=== PATIENT | female | born 1955 | race Caucasian/White ===

== ENCOUNTER 2025-02-21 07:58 | Day surgery (SDC) | payer MEDICARE, OTHER ==
[2025-02-21] MEDS ORDERED: Midazolam 1 MG/ML 2 ML SDV IV ONE (07:59)
[2025-02-21] MEDS ORDERED: fentaNYL 100 MCG/2 ML SDV IV ONE (07:59)
[2025-02-21] MEDS ORDERED: Sodium Chloride 0.9% 10 ML Syringe FLUSH PRN (08:00)
[2025-02-21] MEDS: Lactated Ringers 1,000 ML IV PRN (09:15)
[2025-02-21] MEDS: acetaZOLAMIDE 500 MG Cap.ER PO ONE (10:37)
== END 2025-02-21 10:53 ==
LOC: FB.SDS 07:58
PROVIDERS: ATTEND Ophthalmology
DX: E11.36 Type 2 diabetes mellitus with diabetic cataract (principal); H26.8 Other specified cataract; I12.9 Hypertensive chronic kidney disease with stage 1 through stage 4 chronic kidney disease, or unspecified chronic kidney disease; E11.22 Type 2 diabetes mellitus with diabetic chronic kidney disease; N18.30 Chronic kidney disease, stage 3 unspecified; Z79.899 Other long term (current) drug therapy; Z79.4 Long term (current) use of insulin; Z88.8 Allergy status to other drugs, medicaments and biological substances; Z91.09 Other allergy status, other than to drugs and biological substances; Z87.891 Personal history of nicotine dependence
CPT/HCPCS: 00142; 66984; 82947; A9270; J2250; J3010; J7120; V2632

== ENCOUNTER 2025-03-07 07:27 | Day surgery (SDC) | payer MEDICARE, OTHER ==
[2025-03-07] MEDS ORDERED: Midazolam 1 MG/ML 2 ML SDV IV ONE (07:28)
[2025-03-07] MEDS ORDERED: fentaNYL 100 MCG/2 ML SDV IV ONE (07:28)
[2025-03-07] MEDS ORDERED: Sodium Chloride 0.9% 10 ML Syringe FLUSH PRN (07:30)
[2025-03-07] MEDS: acetaZOLAMIDE 500 MG Cap.ER PO ONE (09:54)
[2025-03-07] MEDS: Lactated Ringers 1,000 ML IV PRN (09:54)
== END 2025-03-07 10:16 ==
LOC: FB.SDS 07:27
PROVIDERS: ATTEND Ophthalmology
DX: E11.36 Type 2 diabetes mellitus with diabetic cataract (principal); H26.9 Unspecified cataract; I12.9 Hypertensive chronic kidney disease with stage 1 through stage 4 chronic kidney disease, or unspecified chronic kidney disease; E11.22 Type 2 diabetes mellitus with diabetic chronic kidney disease; N18.30 Chronic kidney disease, stage 3 unspecified; E78.00 Pure hypercholesterolemia, unspecified; F32.9 Major depressive disorder, single episode, unspecified; Z88.1 Allergy status to other antibiotic agents; Z88.6 Allergy status to analgesic agent; Z91.09 Other allergy status, other than to drugs and biological substances; Z79.4 Long term (current) use of insulin; Z79.899 Other long term (current) drug therapy
CPT/HCPCS: 00142; 66984; 82947; A9270; J2250; J3010; J7120; V2632